=== PATIENT | female | born 1995 | race Hispanic/Latino ===

== ENCOUNTER 2017-10-30 22:37 | Emergency (ER) | payer OTHER ==
[~2017-10-30] VITALS: Ht 170.2 cm; Wt 102.1 kg
[2017-10-31] MEDS ORDERED: IBUPROFEN 600 MG TAB PO STA
== END 2017-10-31 | disposition home or self-care (01) ==
LOC: FSED 22:37
DX: J02.9 Acute pharyngitis, unspecified (principal); K12.1 Other forms of stomatitis
CPT/HCPCS: 83518; 99283

== ENCOUNTER 2018-11-02 20:33 | Emergency (ER) | payer OTHER ==
[~2018-11-02] VITALS: Ht 170.2 cm; Wt 99.8 kg
--- OUTSIDE RECORDS SUMMARY | 2018-11-02 20:37 | XMS REPORT | Continuity of Care Document ---
Author Author [facility] Interface Address Unknown Phone Unavailable Problems Problem Status Onset Date Classification Date Reported Comments Source Adult health examination 12/16/2017 Diagnosis 12/16/2017 [facility] Screening for disorder 12/08/2017 Diagnosis 12/16/2017 [facility] Screening procedure 02/19/2016 Diagnosis 02/19/2016 [facility] Discharge Diagnosis: Abdominal pain in 08/11/2014 08/13/2014 [place] CRAMPING/PREG Active 08/11/2014 [place] ABDOMINAL PAIN Active 05/01/2011 [place] Asthma Resolved Problem 08/13/2014 [place] Medications Medication Details Route Status Patient Instructions Ordering Provider Order Date Source Acetaminophen 650 mg, 2 tab, Route: PO, Drug form: TAB, ONCE, Dosing Weight 81.051, kg, Priority: STAT, Start date: 08/11/14 14:05:00, Stop date: 08/11/14 14:05:00Notes: Do not exceed 4 gm/day. (Same as: Tylenol) Inactive 08/11/2014 [place] Saline Flush 0.9% 10 mL, Route: IVP, Drug Form: INJ, Dosing Weight 81.051, kg, PRN, PRN Line Flush, Start date: 08/11/14 14:05:00, Duration: 30 day, Stop date: 09/10/14 15:04:00Notes: (Same as: BD Posiflush) Inactive 08/11/2014 [place] Motrin 600 mg oral tablet 600 mg, 1 tab, PO, Q6H, PRN, 30 tab, Pain, Substitution Allowed, take with foodtake with food PO Active [place] 05/02/2011 [place] No Medications Reported No Medications Reported Active [facility] Allergies, Adverse Reactions, Alerts Substance Category Reaction Severity Reaction type Status Date Reported Comments Source Immunizations Immunization Date Given Site Status Last Updated Comments Source Tdap 09/03/2017 completed [facility] influenza, injectable, quadrivalent 09/03/2017 completed [facility] meningococcal MCV4P 03/04/2017 completed [facility] Results Order Name Results Value Reference Range Date Interpretation Comments Source Measles virus IgG Ab [Units/volume] in Serum by Immunoassay Measles virus IgG Ab [Units/volume] in Serum by Immunoassay <25.0 immune >29.9 12/10/2017 below low normal [facility] BLOOD BANK RESULTS ABO/Rh O POS 08/11/2014 [place] ENDOCRINOLOGY hCG Tot 549 mIU/mL 08/11/2014 1Interpretive Data: Reference Range: Male 0 - 5 mIU/mL Non- Female 0 - 5 mIU/mL Note: hCG result should be used in conjunction with symptoms, results of other tests, and clinical impressions. Weeks of Gestation hCG (mIU/mL) 3 6 - 71 4 10-750 5 217 - 7,138 6 158 -31,795 7 3,697 - 163,563 8 32,065 - 149,571 9 63,803 - 151,410 10 46,506 - 186,977 11 27,832 - 210,612 14 13,950 - 62,530 15 12,039 - 70,971 16 9,040 - 56,451 17 8,175 - 55,868 18 8,099 - 58,176 [facility] HEMATOLOGY Basophils # 0.0 K/CMM 0.0 - 0.2 08/11/2014 [facility] HEMATOLOGY Eosinophils # 0.2 K/CMM 0.0 - 0.5 08/11/2014 [facility] HEMATOLOGY Basophils 0.4 % 0.0 - 1.0 08/11/2014 [facility] HEMATOLOGY Segs 68.2 % 45.0 - 75.0 08/11/2014 [facility] HEMATOLOGY Eosinophils 2.4 % 0.0 - 4.0 08/11/2014 [facility] HEMATOLOGY Monocytes 6.9 % 2.0 - 12.0 08/11/2014 [facility] HEMATOLOGY Lymphocytes 22.1 % 20.0 - 40.0 08/11/2014 [facility] HEMATOLOGY Monocytes # 0.7 K/CMM 0.0 - 0.8 08/11/2014 [facility] HEMATOLOGY Lymphocytes # 2.1 K/CMM 1.0 - 5.5 08/11/2014 [place] HEMATOLOGY Segs-Bands # 6.4 K/CMM 1.5 - 8.1 08/11/2014 [place] HEMATOLOGY RDW 13.9 % 11.5 - 14.5 08/11/2014 [place] HEMATOLOGY MCHC 33.0 g/dL 32.0 - 36.0 08/11/2014 [place] HEMATOLOGY MPV 8.1 fL 7.4 - 10.4 08/11/2014 [place] HEMATOLOGY Platelet 359 K/CMM 133 - 450 08/11/2014 [place] HEMATOLOGY MCH 29.1 pg 27.0 - 31.0 08/11/2014 [place] HEMATOLOGY MCV 88.0 fL 80.0 - 98.0 08/11/2014 [place] HEMATOLOGY RBC 4.58 M/CMM 4.20 - 5.40 08/11/2014 [place] HEMATOLOGY Hct 40.3 % 36.0 - 48.0 08/11/2014 [place] HEMATOLOGY Hgb 13.3 g/dL 12.0 - 16.0 08/11/2014 [place] HEMATOLOGY WBC 9.4 K/CMM 3.7 - 10.4 08/11/2014 [place] URINE AND STOOL UA Urobilinogen 0.2 EU/dL 0.1 - 1.0 08/11/2014 [place] URINE AND STOOL UA Bili Negative *NA* (08/11/14 2:26 PM) Negative 08/11/2014 [place] URINE AND STOOL UA Blood Negative (08/11/14 2:26 PM) Negative 08/11/2014 [place] URINE AND STOOL UA Leuk Est Negative (08/11/14 2:26 PM) Negative 08/11/2014 [place] URINE AND STOOL UA Nitrite Negative (08/11/14 2:26 PM) Negative 08/11/2014 [place] URINE AND STOOL UA Color Yellow *NA* (08/11/14 2:26 PM) Yellow 08/11/2014 [place] URINE AND STOOL UA Ketones Negative *NA* (08/11/14 2:26 PM) Negative 08/11/2014 [place] URINE AND STOOL UA Glucose Negative (08/11/14 2:26 PM) Negative 08/11/2014 [place] URINE AND STOOL UA Protein Negative (08/11/14 2:26 PM) Negative 08/11/2014 [place] URINE AND STOOL UA Spec Grav <=1.005
*NA*
(08/11/14 2:26 PM) <=1.030 08/11/2014 [place] URINE AND STOOL UA pH 7.0 5.0 - 8.0 08/11/2014 [place] URINE AND STOOL UA Turbidity Clear (08/11/14 2:26 PM) Clear 08/11/2014 [place] URINE AND STOOL UA Bacteria Occasional /HPF None Seen /HPF 08/11/2014 [place] URINE AND STOOL UA Mucus None Seen (08/11/14 2:26 PM) None Seen 08/11/2014 [place] URINE AND STOOL UA Sq Epi Occasional /LPF Few /LPF 08/11/2014 [place] URINE AND STOOL UA WBC 0-2 /HPF None Seen /HPF 08/11/2014 [place] URINE AND STOOL UA RBC 0-2 /HPF 0 - 2 08/11/2014 [place] RAPID Grp A Strep Scr Negative (05/01/2011 18:22:00) ?? >Negative 05/01/2011 Normal [facility] Microbiology Culture: Throat Strep Screen 05/01/2011 [facility] CHEMISTRY UDS Note See Note 1 *NA* (05/01/2011 18:05:00) ?? 05/01/2011 NA 1Interpretive Data: Drugs reported as positive have not been confirmed by a second method and should be used for medical purposes only. To orderconfirmation, contact laboratory. note: Below are cut-off concentrations for all urine drugs of abuse performed in the laboratory. Some drugs listed in the table may not be included in this panel.Description Cut-off concentration Amphetamine 1000 ng/mLBarbiturates 200 ng/mLBenzodiazepines 300 ng/mLCocaine metabolites 300 ng/mLOpiates 300 ng/mLPhencyclidine 25 ng/mLPropoxyphene 300 ng/mLMarijuana metabolites 50 ng/mLMethadone 300 ng/mLUrine alcohol 20 mg/dL [place] CHEMISTRY U Phencyc Scr Negative *NA* (05/01/2011 18:05:00) ?? >Negative 05/01/2011 NA [facility] [place] CHEMISTRY U Cannab Scr Negative *NA* (05/01/2011 18:05:00) ?? >Negative 05/01/2011 NA [facility] [place] CHEMISTRY U Francy Scr Negative *NA* (05/01/2011 18:05:00) ?? >Negative 05/01/2011 NA [facility] [place] CHEMISTRY U Benzodia Scr Negative *NA* (05/01/2011 18:05:00) ?? >Negative 05/01/2011 NA [facility] [place] CHEMISTRY U Opiate Scr Negative *NA* (05/01/2011 18:05:00) ?? >Negative 05/01/2011 NA [facility] [place] CHEMISTRY U Amph Scr Negative *NA* (05/01/2011 18:05:00) ?? >Negative 05/01/2011 NA [facility] [place] CHEMISTRY U Cocaine Scr Negative *NA* (05/01/2011 18:05:00) ?? >Negative 05/01/2011 NA [facility] [place] CHEMISTRY U Preg Negative (05/01/2011 18:05:00) ?? >Negative 05/01/2011 Normal [place] URINALYSIS UA Bacteria Occasional /HPF (05/01/2011 18:05:00) ?? >None Seen 05/01/2011 Normal [place] URINALYSIS UA RBC 0-2 /HPF (05/01/2011 18:05:00) ?? >0 - 2 05/01/2011 Normal [place] URINALYSIS UA WBC 0-2 /HPF (05/01/2011 18:05:00) ?? >None Seen 05/01/2011 Normal [facility] [place] URINALYSIS UA Sq Epi Rare /LPF (05/01/2011 18:05:00) ?? >Few 05/01/2011 Normal [facility] [place] URINALYSIS UA Nitrite Negative (05/01/2011 18:05:00) ?? >Negative 05/01/2011 Normal [facility] [place] URINALYSIS UA Leuk Est Negative (05/01/2011 18:05:00) ?? >Negative 05/01/2011 Normal [facility] [place] URINALYSIS UA Blood Negative (05/01/2011 18:05:00) ?? >Negative 05/01/2011 Normal [facility] [place] URINALYSIS UA Urobilinogen 0.2 EU/dL 0.1 - 1.0 05/01/2011 Normal [place] URINALYSIS UA Ketones Negative *NA* (05/01/2011 18:05:00) ?? >Negative 05/01/2011 NA [place] URINALYSIS UA Bili Negative *NA* (05/01/2011 18:05:00) ?? >Negative 05/01/2011 NA [place] URINALYSIS UA Glucose Negative (05/01/2011 18:05:00) ?? >Negative 05/01/2011 Normal [place] URINALYSIS UA Spec Grav >=1.030 *ABN* (05/01/2011 18:05:00) ?? <<=1.030 05/01/2011 ABN [place] URINALYSIS UA pH 6.0 5.0 - 8.0 05/01/2011 Normal [place] URINALYSIS UA Protein Negative (05/01/2011 18:05:00) ?? >Negative 05/01/2011 Normal [place] URINALYSIS UA Color Yellow *NA* (05/01/2011 18:05:00) ?? >Yellow 05/01/2011 NA [place] URINALYSIS UA Turbidity Clear (05/01/2011 18:05:00) ?? >Clear 05/01/2011 Normal [place] Vital Signs Vital Sign Value Date Comments Source Diastolic (mm Hg) 76 12/16/2017 [facility] Height 67 12/16/2017 [facility] Systolic (mm Hg) 118 12/16/2017 [facility] Weight 245 12/16/2017 [facility] Heart Rate 88 08/11/2014 [place] Temperature Oral (F) 99.0 F 08/11/2014 [place] Respitory Rate 18 08/11/2014 [place] Diastolic (mm Hg) 67 08/11/2014 [place] Systolic (mm Hg) 130 08/11/2014 [place] Systolic (mm Hg) 125 08/11/2014 [place] Diastolic (mm Hg) 75 08/11/2014 [place] Heart Rate 94 08/11/2014 [place] Respitory Rate 20 08/11/2014 [place] Temperature Oral (F) 98.1 F 08/11/2014 [place] Weight 81.051 08/11/2014 [place] Height 172.72 cm 08/11/2014 [place] BMI Calculated 27.17 08/11/2014 [place] Heart Rate 77.0 05/02/2011 [facility] [place] Diastolic (mm Hg) 58.0 05/02/2011 [place] Temperature Oral (F) 98.5 F 05/02/2011 [place] Respitory Rate 16.0 05/02/2011 [place] Systolic (mm Hg) 114.0 05/02/2011 [place] Weight 73.636 05/01/2011 [place] Height 167.64 cm 05/01/2011 [place] Respitory Rate 20.0 05/01/2011 [place] Temperature Oral (F) 98.3 F 05/01/2011 [place] Heart Rate 90.0 05/01/2011 [place] Diastolic (mm Hg) 49.0 05/01/2011 [place] Systolic (mm Hg) 115.0 05/01/2011 [place] Encounters Location Location Details Encounter Type Encounter Number Reason For Visit Attending Provider ADM Date DC Date Status Source [facility] [id number] RADHA SUE 05/01/2011 05/01/2011 Active [place] [facility] [id number] Andi Cook 08/11/2014 08/11/2014 [place] [facility] - [id number] Adela Zapata, 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 [id number] Adela Zapata 02/19/2016 [facility] [place] [facility] [id number] Zuleyka Foss, POT PUNCHER: [address] [place] [address], Ph. [id number] Zuleyka Foss 12/08/2017 [facility] [place] [facility] [id number] Zuleyka Foss, POT PUNCHER: [address] [place] [address], Ph. [id number] Zuleyka Foss 12/08/2017 [facility] [place] [facility] - [id number] Zuleyka Foss, POT PUNCHER: [address] [facility], [place], [place] [address], Ph. [id number] Zuleyka Foss 12/16/2017 [facility] Procedures Procedure Code Date Perfomer Comments Source
--- OUTSIDE RECORDS SUMMARY | 2018-11-02 20:37 | XMS REPORT | CCD ---
Author Author Auto Generated Organization [facility] Lili Pedroza Address Unknown Phone Unavailable Care Team Providers Care Setter Helper Name Role Phone Franck Pereiraebenezer Fink CP ChartServer, Login CP Unavailable Isadora Espana CP Unavailable Jing Augustin CP SYSTEM, SYSTEM CP Unavailable Helder Fisher CP [phone] Roxana Fisher CP Unavailable Benedicto Rosen CP [phone] Alexsandra Stevens CP XMamta Diana CP Tika Garza CP [phone] Malgorzata Uriostegui CP Tavo Howell CP [phone] Allergies, Adverse Reactions, Alerts Substance Reaction Status NKDA ?? Active Medications Medication Instructions Start Date End Date Status Motrin 600 mg oral 600 mg, 1 tab, PO, Q6H, PRN, 30 05/01/2011 ?? Ordered tablet tab, Pain, Substitution Allowed, take with food take with food Vital Signs Most recent to oldest [Reference Range]: 1 2 Height 167.64 cm (05/01/2011 18:04:00) ? Temperature Oral [96.8-99.7 DegF] 98.5 DegF (05/01/2011 21:32:00) ?? 98.3 DegF (05/01/2011 18:04:00) ?? Systolic Blood Pressure [90-138 mmHg] 114 mmHg (05/01/2011 21:32:00) ?? 115 mmHg (05/01/2011 18:04:00) ?? Diastolic Blood Pressure [45-84 mmHg] 58 mmHg (05/01/2011 21:32:00) ?? 49 mmHg (05/01/2011 18:04:00) ?? Respiratory Rate [14-20 BRMIN] 16 BRMIN (05/01/2011 21:32:00) ?? 20 BRMIN (05/01/2011 18:04:00) ?? Peripheral Pulse Rate [55-90 bpm] 77 bpm (05/01/2011 21:32:00) ?? 90 bpm (05/01/2011 18:04:00) ?? Weight 73.636 kg (05/01/2011 18:04:00) ? Results RAPID Most recent to oldest [Reference Range]: 1 Grp A Strep Scr [>Negative] Negative (05/01/2011 18:22:00) ?? URINALYSIS Most recent to oldest [Reference Range]: 1 UA Turbidity [>Clear] Clear (05/01/2011 18:05:00) ?? UA Color [>Yellow] Yellow *NA* (05/01/2011 18:05:00) ?? UA pH [5.0-8.0] 6.0 (05/01/2011 18:05:00) ?? UA Spec Grav [<<=1.030] >=1.030 *ABN* (05/01/2011 18:05:00) ?? UA Glucose [>Negative] Negative (05/01/2011 18:05:00) ?? UA Blood [>Negative] Negative (05/01/2011 18:05:00) ?? UA Ketones [>Negative] Negative *NA* (05/01/2011 18:05:00) ?? UA Protein [>Negative] Negative (05/01/2011 18:05:00) ?? UA Urobilinogen [0.1-1.0 EU/dL] 0.2 EU/dL (05/01/2011 18:05:00) ?? UA Bili [>Negative] Negative *NA* (05/01/2011 18:05:00) ?? UA Leuk Est [>Negative] Negative (05/01/2011 18:05:00) ?? UA Nitrite [>Negative] Negative (05/01/2011 18:05:00) ?? UA WBC [>None Seen /HPF] 0-2 /HPF (05/01/2011 18:05:00) ?? UA RBC [>0-2 /HPF] 0-2 /HPF (05/01/2011 18:05:00) ?? UA Bacteria [>None Seen /HPF] Occasional /HPF (05/01/2011 18:05:00) ?? UA Sq Epi [>Few /LPF] Rare /LPF (05/01/2011 18:05:00) ?? CHEMISTRY Most recent to oldest [Reference Range]: 1 U Amph Scr [>Negative] Negative *NA* (05/01/2011 18:05:00) ?? U Francy Scr [>Negative] Negative *NA* (05/01/2011 18:05:00) ?? U Benzodia Scr [>Negative] Negative *NA* (05/01/2011 18:05:00) ?? U Cocaine Scr [>Negative] Negative *NA* (05/01/2011 18:05:00) ?? U Opiate Scr [>Negative] Negative *NA* (05/01/2011 18:05:00) ?? U Phencyc Scr [>Negative] Negative *NA* (05/01/2011 18:05:00) ?? U Cannab Scr [>Negative] Negative *NA* (05/01/2011 18:05:00) ?? UDS Note See Note 1 *NA* (05/01/2011 18:05:00) ?? U Preg [>Negative] Negative (05/01/2011 18:05:00) ?? 1Interpretive Data: Drugs reported as positive have [...] 50 ng/mLMethadone 300 ng/mLUrine alcohol 20 mg/dL Microbiology Reports PROCEDURE:Culture: Throat Strep Screen STATUS: In Progress BODY SITE: ?? COLLECTED DATE/TIME: 05/01/2011 18:22:00 SOURCE: Throat FREE TEXT SOURCE: ?? PRELIMINARY REPORTS Preliminary Report Culture In Progress
--- OUTSIDE RECORDS SUMMARY | 2018-11-02 20:37 | XMS REPORT | Encounter Summary ---
Author Organization Unknown Address [address] [place] [address] Phone [phone] Reason for Visit Screening - Lab Instructions 1. Screening procedure mumps virus IgG Ab, quant, immunoassay, serum hepatitis B surface Ab, quantitative, serum rubella IgG Ab, quant immunoassay, serum or plasma measles virus IgG Ab, quant, immunoassay, serum varicella-zoster igg Ab screen, serum hepatitis C Ab, [id number], serum or plasma Discussion Note: None recorded. Patient educational handouts: No information available. Plan of Care Patient Instructions [facility] wiill contact you with test results. Patient verbalizes understanding and agrees to the plan. Reminders Provider Appointments None recorded. Lab Mumps Virus IgG Ab, Quant, Immunoassay, Serum 02/19/2016 [facility] Hepatitis B Surface Ab, Quantitative, Serum 02/19/2016 [facility] Rubella IgG Ab, Quant Immunoassay, Serum or Plasma 02/19/2016 [facility] Measles Virus IgG Ab, Quant, Immunoassay, Serum 02/19/2016 [facility] Varicella-zoster Igg Ab Screen, Serum 02/19/2016 [facility] Hepatitis C Ab, [id number], Serum or Plasma 02/19/2016 [facility] Referral None recorded. Procedures None recorded. Surgeries None recorded. Imaging None recorded. Medications No Medications Reported Medications Administered None recorded. Vitals None recorded. Lab Results None recorded. Allergies None recorded. Problems None recorded. Procedures None recorded. Vaccine List None recorded. Social History None recorded. Past Encounters 02/19/2016 Screening Procedure [facility]: [address] [facility], [place] [address], Ph. History of Present Illness Lab Request Reported By: Patient HPI: Lab Request (normal) no symptoms Review of Systems Basic Reported By: Patient Constitutional: Constitutional: no fever Eyes: Eyes: no eye complaints Qdsm-Uzyu-Whtgm-Throat: Ears: no ear complaints. Nose: no nose/sinus problems. Mouth/Throat: no sore throat, no bleeding gums, no mouth complaints, no teeth problems Cardiovascular: Cardiovascular: no chest pain, no shortness of breath, no known heart murmur Respiratory: Respiratory: no cough, no wheezing, no shortness of breath Gastrointestinal: Gastrointestinal: no abdominal pain, no vomiting / diarrhea Genitourinary: Genitourinary: no urinary complaints, no discharge Musculoskeletal: Musculoskeletal: no muscle aches, no muscle weakness, no arthralgias/joint pain, no back pain Skin: Skin: no abnormal / changing mole, no jaundice, no rashes Neurologic: Neurologic: no loss of consciousness, no weakness, no numbness, no seizures, no dizziness, no headaches Physical Exam Screening General Appearance: General: well-developed, well-nourished, no acute distress
--- OUTSIDE RECORDS SUMMARY | 2018-11-02 20:37 | XMS REPORT | Encounter Summary ---
Author Organization Unknown Address [address] [place] [address] Phone [phone] Reason for Visit Screening - Lab Instructions 1. Screening for disorder measles virus IgG Ab, quant, immunoassay, serum Discussion Note: None recorded. Patient educational handouts: No information available. Plan of Care Reminders Provider Appointments None recorded. Lab Measles Virus IgG Ab, Quant, Immunoassay, Serum 12/08/2017 [facility] Referral None recorded. Procedures None recorded. Surgeries None recorded. Imaging None recorded. Medications No Medications Reported Medications Administered None recorded. Vitals None recorded. Lab Results None recorded. Allergies None recorded. Problems None recorded. Procedures None recorded. Vaccine List None recorded. Social History None recorded. 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 History of Present Illness Lab Request Reported By: Patient HPI: Lab Request (normal) no symptoms Review of Systems Basic Reported By: Patient Constitutional: Constitutional: no fever Physical Exam Adult Basic Reported By: Patient Constitutional: General Appearance: healthy-appearing, well-nourished, well-developed. Level of Distress: NAD. Ambulation: ambulating normally Psychiatric: Mental Status: active and alert. Orientation: to time, to place, to person
--- OUTSIDE RECORDS SUMMARY | 2018-11-02 20:37 | XMS REPORT | Encounter Summary ---
Author Organization Unknown Address [address] [place] [address] Phone [phone] Reason for Visit Physical Exam Instructions 1. Adult health examination Discussion Note: None recorded. Patient educational handouts: No information available. Plan of Care Reminders Provider Appointments None recorded. Lab None recorded. Referral None recorded. Procedures None recorded. Surgeries None recorded. Imaging None recorded. Medications No Medications Reported Medications Administered None recorded. Vitals Height Weight BMI Blood Pressure 5 ft 7 in 245 lbs 38.4 kg/m2 (1) 116/80 mm[Hg] (2) 118/76 mm[Hg] Lab Results Date Name Specimen Result Interpretation Description Value Range Status Address 12/08/2017 Measles Virus IgG Ab, Quant, Immunoassay, Serum BLOOD VENOUS Below Low Normal Rubeola Ab, IgG <25.0 AU/mL immune >29.9 AU/mL Final [facility] ([place]): [address] [place] [address] Allergies Code Code System Name Reaction Severity Status Onset NKDA Problems No Known Problems Procedures None recorded. Vaccine List Vaccine Type influenza, injectable, quadrivalent 09/03/2017 meningococcal MCV4P 03/04/2017 Tdap 09/03/2017 Social History Smoking Status Never Smoker Past Encounters 12/16/2017 Adult Health Examination FLIP Bianchi: [address] [place] [address], Ph. 12/08/2017 Screening for Disorder FLIP Bianchi: [address] [place] [address], Ph. History of Present Illness Physical Request Reported By: Patient HPI: Physical Examination Request No medical complaints Review of Systems Complete Reported By: Patient Constitutional: Constitutional: no fatigue, no fever, no significant weight gain, no significant weight loss Skin: Skin: no abnormal moles, no rashes Eyes: Eyes: no irritation, no vision changes ENMT: ENMT: no hearing loss, no ear pain, no nose/sinus problems, no sore throat, no snoring, no dry mouth, no mouth ulcers Respiratory: Respiratory: no dyspnea / shortness of breath, no cough, no sputum production, no hemoptysis, no wheezing Cardiovascular: Cardiovascular: no chest pain, no palpitations, no orthopnea Gastrointestinal: Gastrointestinal: no heartburn, no dysphagia, no nausea, no vomiting, no abdominal pain, no bowel movement changes, no diarrhea, no constipation, no rectal bleeding Genitourinary: Genitourinary: no hematuria, no abnormal bleeding, no flank pain, no trouble urinating, no incontinence, no rash, no lesion, no discharge, no vaginal odor, no vaginal itching Endocrine: Menstrual: no menstrual problems, no PMDD symptoms. Menopausal: no menopausal symptoms. Sexual: no sexual problems Musculoskeletal: Musculoskeletal: no muscle aches, no muscle weakness, no arthralgias/joint pain, no back pain Neurological: Neurologic: no headaches, no dizziness, no LOC, no weakness, no numbness, no seizures Psychological: Psych: no depression, no alcoholism, no sleep disturbances Physical Exam Adult Female Complete Reported By: Patient Constitutional: General Appearance: obese. Level of Distress: NAD. Ambulation: ambulating normally Psychiatric: Mental Status: active and alert. Orientation: to time, to place, to person Eyes: Lids and Conjunctivae: non-injected, no discharge, no pallor. Pupils: PERRLA. Corneas: grossly intact. EOM: EOMI. Lens: clear. Sclerae: non-icteric. Vision: acuity grossly intact, distance acuity: both eyes, with correction: 20/20, distance acuity: left, with correction: 20/20, distance acuity: right, with correction: 20/20 Uzg-Noqm-Qdwpc-Throat: Ears: no lesions on external ear, no outer ear tenderness, EACs clear, TMs clear. Hearing: no hearing loss. Nose: no lesions on external nose, nares patent, no septal deviation, nasal passages clear, no sinus tenderness, no nasal discharge. Lips, Teeth, and Gums: no mouth or lip ulcers, no bleeding gums, normal dentition. Oropharynx: moist mucous membranes, no erythema, no exudates, tonsils not enlarged Neck: Neck: supple, trachea midline, no masses, FROM. Lymph Nodes: no cervical LAD, no supraclavicular LAD. Thyroid: no enlargement, non-tender, no nodules Lungs: Respiratory effort: no dyspnea. Auscultation: breath sounds normal Cardiovascular: Heart Auscultation: RRR, no murmurs. Neck vessels: no carotid bruits. Pulses including femoral / pedal: normal throughout Abdomen: Bowel Sounds: normal. Inspection and Palpation: soft, non-distended, no tenderness, no guarding, no rebound tenderness, no masses, no CVA tenderness. Liver: non-tender, no hepatomegaly. Spleen: non-tender, no splenomegaly. Hernia: none palpable Musculoskeletal:: Motor Strength and Tone: normal motor strength, normal tone. Joints, Bones, and Muscles: normal movement of all extremities, no bony abnormalities, no contractures, no tenderness. Extremities: no cyanosis, no edema, no varicosities, no palpable cord Neurologic: Gait and Station: normal gait, normal station. Cranial Nerves: grossly intact. Sensation: grossly intact. Reflexes: DTRs 2+ bilaterally throughout. Coordination and Cerebellum: no tremor Skin: Inspection and palpation: no rash, no lesions, no ulcer, no abnormal nevi, no induration, no nodules, good turgor, no jaundice. Nails: normal Back: Thoracolumbar Appearance: normal curvature
--- OUTSIDE RECORDS SUMMARY | 2018-11-02 20:37 | XMS REPORT | Summary of Care ---
Author Organization Unknown Address Unknown Phone Unavailable Encounter [facility] Christensen(JURGEN) [id number] Date(s): 08/11/14 - 08/11/14 [facility] [address] [address]- [facility] Discharge Diagnosis: Abdominal pain in Discharge Disposition: Home Physician Attending: Andi Cook Si, DO Reason for Visit CRAMPING/PREG Vital Signs Most recent to 1 2 oldest [Reference Range]: Height 172.72 cm (08/11/14 1:28 PM) Temperature Oral 99.0 DegF 98.1 DegF [96.4-99.1 DegF] (08/11/14 3:55 PM) (08/11/14 1:28 PM) Systolic Blood 130 mmHg 125 mmHg Pressure [90-140 (08/11/14 3:55 PM) (08/11/14 1:28 PM) mmHg] Diastolic Blood 67 mmHg 75 mmHg Pressure [60-90 (08/11/14 3:55 PM) (08/11/14 1:28 PM) mmHg] Respiratory Rate 18 BRMIN 20 BRMIN [14-20 BRMIN] (08/11/14 3:55 PM) (08/11/14 1:28 PM) Peripheral Pulse 88 bpm 94 bpm Rate [60-100 bpm] (08/11/14 3:55 PM) (08/11/14 1:28 PM) Weight 81.051 kg (08/11/14 1:28 PM) Body Mass Index 27.17 m2 (08/11/14 1:28 PM) Problem List Condition Effective Dates Status Health Status Informant Asthma(Confirmed) Resolved Allergies, Adverse Reactions, Alerts Substance Reaction Severity Status NKDA Active Medications acetaminophen 650 mg, 2 tab, Route: PO, Drug form: TAB, ONCE, Dosing Weight 81.051, kg, Priori ty: STAT, Start date: 08/11/14 14:05:00, Stop date: 08/11/14 14:05:00 Notes: Do not exceed 4 gm/day. (Same as: Tylenol) Start Date: 08/11/14 Stop Date: 08/11/14 Status: Completed Saline Flush 0.9% 10 mL, Route: IVP, Drug Form: INJ, Dosing Weight 81.051, kg, PRN, PRN Line Flush , Start date: 08/11/14 14:05:00, Duration: 30 day, Stop date: 09/10/14 15:04:00 Notes: (Same as: BD Posiflush) Start Date: 08/11/14 Stop Date: 08/11/14 Status: Discontinued Results BLOOD BANK RESULTS Most recent to 1 oldest [Reference Range]: ABO/Rh O POS *Unknown* (08/11/14 2:26 PM) ENDOCRINOLOGY Most recent to 1 oldest [Reference Range]: hCG Tot 549 mIU/mL 1 *NA* (08/11/14 2:26 PM) 1Interpretive Data: Reference Range: Male 0 - [...] 8,175 - 55,868 18 8,099 - 58,176 URINE AND STOOL Most recent to 1 oldest [Reference Range]: UA Turbidity [Clear] Clear (08/11/14 2:26 PM) UA Color [Yellow] Yellow *NA* (08/11/14 2:26 PM) UA pH [5.0-8.0] 7.0 (08/11/14 2:26 PM) UA Spec Grav <=1.005 [<=1.030] *NA* (08/11/14 2:26 PM) UA Glucose Negative [Negative] (08/11/14 2:26 PM) UA Blood [Negative] Negative (08/11/14 2:26 PM) UA Ketones Negative [Negative] *NA* (08/11/14 2:26 PM) UA Protein Negative [Negative] (08/11/14 2:26 PM) UA Urobilinogen 0.2 EU/dL [0.1-1.0 EU/dL] (08/11/14 2:26 PM) UA Bili [Negative] Negative *NA* (08/11/14 2:26 PM) UA Leuk Est Negative [Negative] (08/11/14 2:26 PM) UA Nitrite Negative [Negative] (08/11/14 2:26 PM) UA WBC [None Seen 0-2 /HPF /HPF] (08/11/14 2:26 PM) UA RBC [0-2 /HPF] 0-2 /HPF (08/11/14 2:26 PM) UA Bacteria [None Occasional /HPF Seen /HPF] (08/11/14 2:26 PM) UA Sq Epi [Few /LPF] Occasional /LPF (08/11/14 2:26 PM) UA Mucus [None Seen] None Seen (08/11/14 2:26 PM) HEMATOLOGY Most recent to 1 oldest [Reference Range]: WBC [3.7-10.4 K/CMM] 9.4 K/CMM (08/11/14 2:26 PM) RBC [4.20-5.40 4.58 M/CMM M/CMM] (08/11/14 2:26 PM) Hgb [12.0-16.0 g/dL] 13.3 g/dL (08/11/14 2:26 PM) Hct [36.0-48.0 %] 40.3 % (08/11/14 2:26 PM) MCV [80.0-98.0 fL] 88.0 fL (08/11/14 2:26 PM) MCH [27.0-31.0 pg] 29.1 pg (08/11/14 2:26 PM) MCHC [32.0-36.0 33.0 g/dL g/dL] (08/11/14 2:26 PM) RDW [11.5-14.5 %] 13.9 % (08/11/14 2:26 PM) Platelet [133-450 359 K/CMM K/CMM] (08/11/14 2:26 PM) MPV [7.4-10.4 fL] 8.1 fL (08/11/14 2:26 PM) Segs [45.0-75.0 %] 68.2 % (08/11/14 2:26 PM) Lymphocytes 22.1 % [20.0-40.0 %] (08/11/14 2:26 PM) Monocytes [2.0-12.0 6.9 % %] (08/11/14 2:26 PM) Eosinophils [0.0-4.0 2.4 % %] (08/11/14 2:26 PM) Basophils [0.0-1.0 0.4 % %] (08/11/14 2:26 PM) Segs-Bands # 6.4 K/CMM [1.5-8.1 K/CMM] (08/11/14 2:26 PM) Lymphocytes # 2.1 K/CMM [1.0-5.5 K/CMM] (08/11/14 2:26 PM) Monocytes # [0.0-0.8 0.7 K/CMM K/CMM] (08/11/14 2:26 PM) Eosinophils # 0.2 K/CMM [0.0-0.5 K/CMM] (08/11/14 2:26 PM) Basophils # [0.0-0.2 0.0 K/CMM K/CMM] (08/11/14 2:26 PM) Medications Administered During Your Visit No data available for this section Immunizations No data available for this section Social History Social History Type Response Smoking Status Never smoker, Exposure to Tobacco Smoke None, Cigarette Smoking Last 365 Days No, Reg Smoking Cessation Counseling No
[2018-11-02] MEDS ORDERED: IBUPROFEN 600 MG TAB PO STA (21:01)
[2018-11-02] MEDS ORDERED: ACETAMINOPHEN 325 MG TAB PO ONE (21:15)
== END 2018-11-02 21:09 | disposition home or self-care (01) ==
LOC: FSED 20:33
DX: H65.01 Acute serous otitis media, right ear (principal); J00 Acute nasopharyngitis [common cold]
CPT/HCPCS: 99282